=== PATIENT | male | born 1955 | race African-American/Black ===

== ENCOUNTER 2016-08-12 12:50 | Outpatient (CLI) | payer OTHER | END 2016-08-12 19:52 | disposition home or self-care (01) | LOC: RAD 12:50 | DX: J18.9 Pneumonia, unspecified organism (principal) ==

== ENCOUNTER 2017-08-13 16:51 | Outpatient (CLI) | payer OTHER | END 2017-08-13 22:42 | disposition home or self-care (01) | LOC: RAD 16:51 | DX: J40 Bronchitis, not specified as acute or chronic (principal) ==